=== PATIENT | female | born 1940 | race Caucasian/White ===

== ENCOUNTER 2016-10-02 19:48 | Inpatient (IN) | payer OTHER ==
[~2016-10-02] VITALS: Ht 157.5 cm; Wt 65.0 kg
[2016-10-02 20:05] VITALS: TEMP 97.8
[2016-10-02 20:07] LABS: URINE BLOOD (Dip) POC Trace-intact (NEGATIVE)
[2016-10-02] MEDS ORDERED: ASPIRIN 81 MG TAB PO STA (20:29)
[2016-10-02] MEDS ORDERED: NITROGLYCERIN 2% 1 GM OINT PKT TD STA (20:29)
[2016-10-02] MEDS ORDERED: NITROGLYCERIN (SL) 0.4 MG TAB SL PRN (20:30)
[2016-10-02] MEDS ORDERED: ASPI-664 PO (20:34)
[2016-10-02] MEDS ORDERED: METF1000 PO (20:34)
[2016-10-02] MEDS ORDERED: PANT40TA4 PO (20:35)
[2016-10-02] MEDS ORDERED: BENA10TA48 PO (20:35)
[2016-10-02] MEDS ORDERED: OMEG-135 PO (20:36)
[2016-10-02 20:52] LABS: ADD SCAN DIFF NO
[2016-10-02 20:54] LABS: BASOPHIL # 0.1 10^3/ul (0.0-0.1); BASOPHILS % 0.7 % (0.0-2.0); EOSINOPHILS # 0.8 10^3/ul (0.0-0.5); EOSINOPHILS % 8.6 % (0.0-7.0); HEMATOCRIT 41.9 % (37.0-47.0); HEMOGLOBIN 14.3 g/dl (12.0-16.0); LYMPHOCYTES # 4.2 10^3/ul (0.8-2.9); LYMPHOCYTES % 48.7 % (15.0-51.0); MEAN CORPUSCULAR HEMOGLOBIN 30.4 pg (29.0-33.0); MEAN CORPUSCULAR HGB CONC 34.1 g/dl (32.0-37.0); MEAN CORPUSCULAR VOLUME 89.1 fl (82.0-101.0); MEAN PLATELET VOLUME 11.3 fl (7.4-10.4); MONOCYTE # 0.4 10^3/ul (0.3-0.9); MONOCYTES % 4.9 % (0.0-11.0); NEUTROPHIL # 3.2 10^3/ul (1.6-7.5); NEUTROPHILS % 36.9 % (39.0-77.0); PLATELET COUNT 208 10^3/UL (140-415); WHITE BLOOD COUNT 8.7 10^3/ul (4.8-10.8)
[2016-10-02 21:07] LABS: INR 0.91; PROTIME 12.3 Sec (12.2-14.2)
[2016-10-02 21:08] LABS: PARTIAL THROMBOPLASTIN TIME 25.8 Sec (25.0-35.0)
[2016-10-02 21:09] LABS: CHLORIDE 97 mmol/L (97-110); POTASSIUM 4.1 mmol/L (3.5-5.1); SODIUM 138 mmol/L (135-144)
[2016-10-02 21:12] LABS: ANION GAP 21 (8-16); CARBON DIOXIDE 24 mmol/L (21-31); CREATININE 0.53 mg/dl (0.44-1.00)
[2016-10-02 21:13] LABS: BLOOD UREA NITROGEN 10 mg/dl (7-20); CALCIUM 9.5 mg/dl (8.4-10.2); GLUCOSE 252 mg/dl (70-220)
[2016-10-02 21:26] LABS: TROPONIN-I < 0.012 ng/ml (0.00-0.12)
--- NOTE | 2016-10-02 22:01 | RADRPT ---
PROCEDURE: CT Brain without contrast. CLINICAL INDICATION: Headaches TECHNIQUE: A CT of the brain was performed on a GE [employer]peed 64-slice CT scanner utilizing axial imaging from the skull base through the vertex without IV contrast. Multiplanar reformatted images were made. Images were reviewed on a PACS workstation. The CTDIvol is 44.63 mGy and the DLP is 720 .23 mGycm. One of the following 3 dose reduction techniques were used: Automated exposure control; adjustment of the mA and/or kV according to patient size; or use of iterative reconstruction technique. COMPARISON: None available FINDINGS: There is no intracranial hemorrhage, mass effect, or midline shift. No extra-axial fluid collection is seen. The ventricles and sulci are age appropriate. Mild diffuse volume loss is present. Subtl e decreased attenuation is present in the bilateral subcortical white matter, bilateral centrum semi ovale, bilateral periventricular white matter compatible with mild chronic microvascular ischemic di sease. mild vascular calcifications are present of the bilateral intracranial internal carotid erin farhan. Incidental note of an empty sella is present. The visualized scalp and calvarium are normal. The bilateral orbits are normal. The bilateral para nasal sinuses, mastoid air cells, and middle ear cavities are clear. Cerumen is present in the bila teral external ear canals. IMPRESSION: 1. No evidence of acute intracranial hemorrhage, infarcts, or acute intracranial pathology. 2. Mild chronic microvascular ischemic disease 3. Mild diffuse volume loss. 4. Mild atherosclerotic vascular disease RPTAT: HDC .Amrita Pérez MD, MD Date Time Electronically viewed and signed by .Amrita Pérez MD, MD on 10/02/2016 22:01 .C/
[2016-10-02] MEDS ORDERED: ACETAMINOPHEN 325 MG TAB PO PRN (22:30)
[2016-10-02] MEDS ORDERED: ONDANSETRON 4 MG INJ IV PRN (22:30)
--- NOTE | 2016-10-02 22:39 | RADRPT ---
PROCEDURE: XR Chest. CLINICAL INDICATION: Chest pain TECHNIQUE: Single frontal chest x-ray. COMPARISON: None. FINDINGS: The lungs are clear. No focal opacification is seen. The cardiomediastinal silhouette is unremarka ble. The osseous structures are remarkable for multilevel degenerative spondylosis of the spine. IMPRESSION: 1. There is no acute cardiopulmonary process. RPTAT: HMJB .Ede Pratt MD, MD Date Time Electronically viewed and signed by .Ede Pratt MD, on 10/02/2016 22:39 .B/
--- NOTE | 2016-10-02 22:44 | ERA ---
ER Documentation Chief Complaint Date/Time DATE: 10/02/16 TIME: 22:42 Chief Complaint weakness, headache x 4 days HPI Patient is a 76-year-old female with hypertension and diabetes who presents with chest pain. The patient was sent by clinic for "unstable angina pectoris" . The patient has chest pain and headache. The symptoms started 3 days ago. The pain comes and goes. Today the pain was worse. The patient has had no treatment as of yet. Does not know the name of her primary doctor. Upon review of old medical records this the patient's first visit to the emergency department. ROS All systems reviewed and are negative except as per history of present illness. Medications Home Meds Reported Medications [place]-3 Fatty Acids/Fish Oil (Fish Oil 1,000 mg Capsule) 1 Each Capsule, 2000 MG PO DAILY, CAP 10/02/16 Pantoprazole* (Pantoprazole*) 40 Mg Tablet.dr, 40 MG PO AC BREAKFAST, TAB 10/02/16 Benazepril Hcl* (Benazepril Hcl*) 10 Mg Tablet, 10 MG PO DAILY, #30 TAB 10/02/16 Aspirin* (Aspirin* EC) 81 Mg Tablet.dr, 81 MG PO DAILY, TAB 10/02/16 Metformin Hcl* (Metformin Hcl*) 1,000 Mg Tablet, 1000 MG PO WITH BREAKFAST DINNE , #60 TAB 10/02/16 Allergies Allergies: Coded Allergies: No Known Allergy (Unverified , 10/02/16) PMhx/Soc History of Surgery: No Anesthesia Reaction: No Hx Neurological Disorder: No Hx Respiratory Disorders: No Hx Cardiac Disorders: Yes (HTN) Hx Psychiatric Problems: No Hx Miscellaneous Medical Probl: Yes (DM) Hx Alcohol Use: No Hx Substance Use: No Hx Tobacco Use: No Smoking Status: Never smoker FmHx Family History: No coronary disease Physical Exam Vitals Vital Signs Date Time Temp Pulse Resp B/P Pulse Ox O2 Delivery O2 Flow Rate FiO2 10/02/16 22:00 77 18 149/70 100 Room Air 10/02/16 20:44 Nasal Cannula 2 10/02/16 20:05 97.8 80 22 188/86 100 Room Air Nasal Cannula 10/02/16 19:51 98.3 80 20 204/84 100 Physical Exam Const: No acute distress Head: Atraumatic Eyes: Normal Conjunctiva ENT: Normal External Ears, Nose and Mouth. Neck: Full range of motion..~ No meningismus. Resp: Clear to auscultation bilaterally Cardio: Regular rate and rhythm, no murmurs Abd: Soft, non tender, non distended. Normal bowel sounds Skin: No petechiae or rashes Back: No midline or flank tenderness Ext: No cyanosis, or edema Neur: Awake and alert Psych: Normal Mood and Affect Result Diagram: 10/02/16203210/02/162032 Results 24 hrs Laboratory Tests Test 10/02/16 20:07 10/02/16 20:33 Bedside Urine pH (LAB) 5.5 Bedside Urine Protein (LAB) Negative Bedside Urine Glucose (UA) 0.1% Bedside Urine Ketones (LAB) 1+ Bedside Urine Blood Trace-intact Bedside Urine Nitrite (LAB) Negative Bedside Urine Leukocyte Esterase (L Trace White Blood Count 8.710^3/ul Red Blood Count 4.7010^6/ul Hemoglobin 14.3g/dl Hematocrit 41.9% Mean Corpuscular Volume 89.1fl Mean Corpuscular Hemoglobin 30.4pg Mean Corpuscular Hemoglobin Concent 34.1g/dl Red Cell Distribution Width 13.0% Platelet Count 70860^3/UL Mean Platelet Volume 11.3fl Neutrophils % 36.9% Lymphocytes % 48.7% Monocytes % 4.9% Eosinophils % 8.6% Basophils % 0.7% Nucleated Red Blood Cells % 0.0/100WBC Neutrophils # 3.210^3/ul Lymphocytes # 4.210^3/ul Monocytes # 0.410^3/ul Eosinophils # 0.810^3/ul Basophils # 0.110^3/ul Nucleated Red Blood Cells # 0.010^3/ul Prothrombin Time 12.3Sec Prothrombin Time Ratio 1.0 INR International Normalized Ratio 0.91 Activated Partial Thromboplast Time 25.8Sec Sodium Level 138mmol/L Potassium Level 4.1mmol/L Chloride Level 97mmol/L Carbon Dioxide Level 24mmol/L Anion Gap 21 Blood Urea Nitrogen 10mg/dl Creatinine 0.53mg/dl Glucose Level 252mg/dl Calcium Level 9.5mg/dl Troponin I < 0.012ng/ml Current Medications Medications (Trade) Dose Ordered Sig/[place] Route PRN Reason Start Time Stop Time Status Last Admin Dose Admin Aspirin (Aspirin) 162 mg ONCE STAT PO 10/02/16 20:29 10/02/16 20:31 DC 10/02/16 20:38 Nitroglycerin (Nitroglycerin 2% Oint) 1 inch ONCE STAT TD 10/02/16 20:29 10/02/16 20:31 DC 10/02/16 20:38 Nitroglycerin (Nitroglycerin (Sl Tab) 0.4 Mg) 1 tab Q5M UP TO 3 DOSES PRN SL CHEST PAIN 10/02/16 20:30 Ondansetron HCl (Zofran Inj) 4 mg ER BRIDGE PRN IV NAUSEA AND/OR VOMITING 10/02/16 22:30 10/03/16 22:29 Acetaminophen (Tylenol Tab) 650 mg ER BRIDGE PRN PO MILD PAIN/FEVER 10/02/16 22:30 10/03/16 22:29 Procedures/MDM EKG #1 read by me: Rate/Rhythm: Regular rate and rhythm at a rate of 84 Intervals: Normal Impression: No evidence of ischemia or arrhythmia EKG #2 is pending at this time. CT brain negative per radiology. Chest x-ray negative per radiology. Patient is a 76-year-old female with hypertension and diabetes who presents with chest pain. There is concern for possible unstable angina. The patient will be admitted to Dr. Mckinney from the panel team. I doubt pneumonia, pneumothorax, pulmonary embolism, or aortic dissection. The patient was given aspirin and nitroglycerin. Departure Diagnosis: Primary Impression: Acute chest pain Additional Impression: Headache Qualified Code: R51 - Acute nonintractable headache, unspecified headache type Condition: RADHA Lin MD Oct 02, 2016 22:44
[2016-10-02 23:15] VITALS: Ht 157.5 cm; Wt 65.0 kg
[2016-10-02 23:44] VITALS: PULSE 77
[2016-10-03] VITALS (12 sets, daily range): BP systolic 123–163; BP diastolic 58–75; PULSE 71–87; RESP 16–19
[2016-10-03] MEDS ORDERED: hydrALAzine 20 MG INJ IV PRN
[2016-10-03] MEDS ORDERED: morphine 2 MG INJ IV PRN
[2016-10-03] MEDS ORDERED: DEXTROSE 50% 50 ML SYRINGE IV PRN ×2 (00:30)
[2016-10-03] MEDS ORDERED: GLUCOSE GEL 15 GRAM TUBE BUCCAL PRN (00:30)
[2016-10-03] MEDS ORDERED: GLUCAGON 1 MG INJ IM PRN (00:30)
[2016-10-03] MEDS ORDERED: GLUCOSE GEL 15 GRAM TUBE PO PRN ×2 (00:30)
[2016-10-03] MEDS: ACCU-CHEK XX SCH ×5 (02:10→21:00)
[2016-10-03] MEDS: ONDANSETRON 4 MG INJ IV PRN ×2 (02:24→09:58)
[2016-10-03] MEDS ORDERED: ACETAMINOPHEN 325 MG TAB PO PRN (02:30)
[2016-10-03] MEDS ORDERED: NITROGLYCERIN (SL) 0.4 MG TAB SL PRN (02:30)
--- NOTE | 2016-10-03 07:24 | HP ---
Date/Time of Note Date/Time of Note DATE: 10/03/16 TIME: :17 Assessment/Plan VTE Prophylaxis VTE Prophylaxis Intervention: heparin Lines/Catheters IV Catheter Type (from Nrsg): Saline Lock Urinary Cath still in place: No Assessment/Plan Assessment/Plan 1. Chest Pain - Oxygen, BB, statin and as needed Nitro and morphine - trend troponin - 2D-echo - Broadcast Designer consult 2. Hypertensive Urgency - adjust meds as needed for better BP control 3. DM - check A1c - Insulin with adjustment as needed HPI/ROS Admit Date/Time Admit Date/Time Oct 02, 2016 at 22:03 Hx of Present Illness Patient is a 76-year-old female with hypertension and diabetes who presents with chest pain after he was sent by clinic. Pain started 3 days ago, described as sharp. Also c/o generalized weakness and intermittent headache. In ER, BP was 209/124. EKG with no ST elevation or dep. first trop neg. He was given aspirin and nitro. . PMH/Family/Social Past Medical History Medical History: diabetes, hypertension Social History Alcohol Use: none Smoking Status: Never smoker Drug Use: none Exam/Review of Systems Vital Signs Vitals Vital Signs Date Time Temp Pulse Resp B/P Pulse Ox O2 Delivery O2 Flow Rate FiO2 10/03/16 04:34 98.4 84 16 123/58 95 10/02/16 22:00 Room Air 10/02/16 20:44 2 Exam Constitutional: other (No acute distress. Appears tired) Head: atraumatic, normocephalic Eyes: EOMI, PERRL Respiratory: clear to auscultation, normal air movement Cardiovascular: nl pulses, regular rate and rhythm Gastrointestinal: non-tender, soft Extremities: normal pulses Labs Result Diagram: 10/02/16203210/02/162032 Medications Medications Current Medications Aspirin (Halfprin) 81 mg DAILY PO ; Start 10/03/16 at 09:00 Fish Oil (Fish Oil) 2,000 mg DAILY PO ; Start 10/03/16 at 09:00 Morphine Sulfate (morphine) 2 mg Q4H PRN IV PAIN; Start 10/03/16 at 00:00 Hydralazine HCl (Apresoline) 10 mg Q4H PRN IV ELEVATED SYSTOLIC BP Last administered on 10/03/16t 00:45; Admin Dose 10 MG; Start 10/03/16 at 00:00 Insulin Glargine (Lantus) 10 unit HS SC ; Start 10/03/16 at 21:00 Diagnostic Test (Pha) (Accu-Chek) 1 ea 02 XX Last administered on 10/03/16 02: 10; Admin Dose 1 EA; Start 10/03/16 at 02:00 Miscellaneous Information 1 ea NOTE XX ; Start 10/03/16 at 00:30 Glucose (Glutose) 15 gm Q15M PRN PO DECREASED GLUCOSE; Start 10/03/16 at 00:30 Glucose (Glutose) 22.5 gm Q15M PRN PO DECREASED GLUCOSE; Start 10/03/16 at 00: 30 Dextrose (D50w Syringe) 25 ml Q15M PRN IV DECREASED GLUCOSE; Start 10/03/16 at 00:30 Dextrose (D50w Syringe) 50 ml Q15M PRN IV DECREASED GLUCOSE; Start 10/03/16 at 00:30 Glucagon (Glucagen) 1 mg Q15M PRN IM DECREASED GLUCOSE; Start 10/03/16 at 00:30 Glucose (Glutose) 15 gm Q15M PRN BUCCAL DECREASED GLUCOSE; Start 10/03/16 at 00 :30 Ondansetron HCl (Zofran Inj) 4 mg Q4H PRN IV NAUSEA AND/OR VOMITING Last administered on 10/03/16 02:24; Admin Dose 4 MG; Start 10/03/16 at 01:00 Acetaminophen (Tylenol Tab) 650 mg Q4H PRN PO PAIN AND OR ELEVATED TEMP Last administered on 10/03/16 02:24; Admin Dose 650 MG; Start 10/03/16 at 02:30 Nitroglycerin (Nitroglycerin (Sl Tab) 0.4 Mg) 1 tab Q5M PRN SL ANGINA; Start at 02:30 SON KUO MD Oct 03, 2016 07:24
[2016-10-03] MEDS: INSULIN ASPART [NOVOLOG] 3 ML PEN SC SCH ×6 (08:00→21:00)
[2016-10-03 08:05] LABS: ADD SCAN DIFF NO
[2016-10-03] MEDS: PANTOPRAZOLE (EC) 40 MG TAB PO SCH (08:10)
[2016-10-03 08:12] LABS: BASOPHIL # 0.1 10^3/ul (0.0-0.1); BASOPHILS % 0.7 % (0.0-2.0); EOSINOPHILS # 0.4 10^3/ul (0.0-0.5); EOSINOPHILS % 3.8 % (0.0-7.0); LYMPHOCYTES # 3.2 10^3/ul (0.8-2.9); LYMPHOCYTES % 34.4 % (15.0-51.0); MEAN CORPUSCULAR HEMOGLOBIN 30.6 pg (29.0-33.0); MEAN CORPUSCULAR HGB CONC 34.2 g/dl (32.0-37.0); MEAN CORPUSCULAR VOLUME 89.4 fl (82.0-101.0); MEAN PLATELET VOLUME 11.7 fl (7.4-10.4); MONOCYTE # 0.4 10^3/ul (0.3-0.9); MONOCYTES % 4.1 % (0.0-11.0); NEUTROPHIL # 5.2 10^3/ul (1.6-7.5); NEUTROPHILS % 56.9 % (39.0-77.0); PLATELET COUNT 186 10^3/UL (140-415); RED BLOOD COUNT 4.25 10^6/ul (4.20-5.40); RED CELL DISTRIBUTION WIDTH 13.2 % (11.5-14.5); WHITE BLOOD COUNT 9.2 10^3/ul (4.8-10.8)
[2016-10-03] MEDS: metFORMIN 500 MG TAB PO SCH ×2 (08:14→17:22)
[2016-10-03 08:19] LABS: ALBUMIN 3.8 g/dl (3.3-4.9)
[2016-10-03 08:22] LABS: ALBUMIN/GLOBULIN RATIO 1.11; BILIRUBIN,INDIRECT 0.2 mg/dl (0-1.1); BILIRUBIN,TOTAL 0.2 mg/dl (0.2-1.3); CREATINE KINASE 30 IU/L (23-200); CREATININE 0.46 mg/dl (0.44-1.00); TOTAL PROTEIN 7.2 g/dl (6.1-8.1)
[2016-10-03 08:23] LABS: CALCIUM 8.8 mg/dl (8.4-10.2); CHOL/HDL RATIO 4.8 RATIO
[2016-10-03 08:34] LABS: CK-MB 0.28 ng/ml (0.0-2.4)
[2016-10-03 08:40] LABS: TROPONIN-I < 0.012 ng/ml (0.00-0.12)
[2016-10-03 09:23] LABS: THYROID STIMULATING HORMONE 2.35 MIU/L (0.465-4.680)
[2016-10-03] MEDS: FISH OIL 1,000 MG CAP PO SCH (09:57)
[2016-10-03] MEDS: ASPIRIN (EC) 81 MG TAB PO SCH (09:58)
--- NOTE | 2016-10-03 13:28 | RADRPT ---
Echocardiogram Report Patient Name: DENISE HEBERT Gender: Female Date: 1940 Study Date: 03-Oct-2016 Shift Commander: Rosamaria Bianchi [facility] Location: 5549 Ref. Physician: SON KUO Quality: Good Procedures: Transthoracic echocardiogram with complete 2D, M-Mode, and doppler examination. Indications: Chest Pain. 2D/M Mode Doppler Measurement Value Normal Ranges Measurement Value Normal Ranges LVIDd 2D 4.0 3.5 - 5.6 cm AV Peak Alec 1.4 m/sec LVIDs 2D 2.1 2.1 - 4.1 cm AV Peak PG 7.5 mmHg LVPWd 2D 1.0 0.6 - 1.1 cm AI Peak PG 29.7 mmHg IVSd 2D 0.8 0.6 - 1.1 cm AI Peak Alec 2.7 m/sec AoR Diam 2D 2.7 2.0 - 3.7 cm AI PHT 644.2 msec EDV 2D 70.4 cm3 LVOT Peak Alec 0.9 m/sec ESV 2D 9.2 cm3 LVOT Peak PG 3.5 mmHg LA Dimen 2D 3.4 2.3 - 4.0 cm MV E Peak Alec 0.9 m/sec MV A Peak Alec 1.5 m/sec MV E/A 0.6 MV Decel Time 242 msec MV Decel [place] 4 MV E/A 0.6 TR Peak Alec 1.8 m/sec TR Peak PG 12.6 mmHg RVSP 16.0 mmHg Findings Left Ventricle: Normal left ventricular systolic function. Normal left ventricular cavity size. Normal left ventricular wall thickness. Ejection fraction is visually estimated at 65 %. Tissue Doppler/Mitral Doppler indices are consistent with impaired relaxation (Stage I diastolic dysfunction). Right Ventricle: Normal right ventricular size. Normal right ventricular systolic function. Left Atrium: There is mild enlargement of left atrium. Right Atrium: The right atrium is normal in size. Mitral Valve: Mitral valve leaflets appear mildly thickened. Mild mitral annular calcification. Trace mitral regurgitation. Aortic Valve: No hemodynamically significant aortic stenosis by doppler. Aortic cusps appear mildly calcified. Trace to mild aortic valve regurgitation. Tricuspid Valve: Normal appearance of the tricuspid valve. Estimated peak PA systolic pressure 16 mmHg. There is trace tricuspid regurgitation. Pulmonic Valve: Pulmonic valve not well visualized. Pericardium: Normal pericardium with no significant pericardial effusion. Aorta: Normal aortic root. IVC: Normal size and normal respiratory collapse consistent with normal right atrial pressure. Conclusions 1.Normal left ventricular systolic function. Normal left ventricular cavity size. Normal left ventricular wall thickness. Ejection fraction is visually estimated at 65 %. Tissue Doppler/Mitral Doppler indices are consistent with impaired relaxation (Stage I diastolic dysfunction). 2.Trace to mild aortic valve regurgitation. 3.Estimated peak PA systolic pressure 16 mmHg based on RA pressure of 3 mmHg. Electronically Signed By: Martin Bright 03-Oct-2016 13:28:15 -0700 Patient Name: DENISE HEBERT Study Date: 03-Oct-2016 [id number]
--- NOTE | 2016-10-03 14:47 | PN ---
Date/Time of Note Date/Time of Note DATE: 10/03/16 TIME: 14:45 Assessment/Plan VTE Prophylaxis VTE Prophylaxis Intervention: SCD's Lines/Catheters IV Catheter Type (from Nrs): Saline Lock Urinary Cath still in place: No Assessment/Plan Chief Complaint/Hosp Course Assessment and plan 1. Chest pain. Serial troponins negative. EF of 65% with stage I diastolic dysfunction. Continue on beta lou. 2. Hypertensive urgency. Continue on antihypertensives and adjust needed 3. Diabetes. A1c of 10.5. Still noted with hyperglycemia. nurses educator to follow. We'll adjust insulin regimen Disposition and plan: community health educator follow. Still hyperglycemic. Will adjust insulin regimen. nurses educator to follow. Discharge when medically stable Discussed plan of care with Dr. Phillips Problems: Subjective 24 Hr Interval Summary Free Text/Dictation no reports of chest pain at this time. reported her chest pain was on deep inspiration Exam/Review of Systems Vital Signs Vitals Vital Signs Date Time Temp Pulse Resp B/P Pulse Ox O2 Delivery O2 Flow Rate FiO2 10/03/16 12:07 75 10/03/16 11:51 99.0 18 150/67 96 10/02/16 22:00 Room Air 10/02/16 20:44 2 Exam Constitutional: alert Psych: no complaints Head: normocephalic Eyes: nl conjunctiva Neck: non-tender, supple, No jvd Respiratory: clear to auscultation, normal air movement Cardiovascular: regular rate and rhythm Gastrointestinal: non-tender, soft Extremities: normal pulses Neurological: nl mental status, nl speech Skin: nl turgor, rash or lesions Results Result Diagram: 10/03/16 0715 10/03/16 0715 Results 24 hrs Laboratory Tests Test 10/02/16 20:07 10/02/16 20:33 10/03/16 00:49 10/03/16 02:04 Bedside Urine pH (LAB) 5.5 Bedside Urine Protein (LAB) Negative Bedside Urine Glucose (UA) 0.1% H Bedside Urine Ketones (LAB) 1+ H Bedside Urine Blood Trace-intact H Bedside Urine Nitrite (LAB) Negative Bedside Urine Leukocyte Esterase (L Trace H White Blood Count 8.7 Red Blood Count 4.70 Hemoglobin 14.3 Hematocrit 41.9 Mean Corpuscular Volume 89.1 Mean Corpuscular Hemoglobin 30.4 Mean Corpuscular Hemoglobin Concent 34.1 Red Cell Distribution Width 13.0 Platelet Count 208 Mean Platelet Volume 11.3 H Neutrophils % 36.9 L Lymphocytes % 48.7 Monocytes % 4.9 Eosinophils % 8.6 H Basophils % 0.7 Nucleated Red Blood Cells % 0.0 Neutrophils # 3.2 Lymphocytes # 4.2 H Monocytes # 0.4 Eosinophils # 0.8 H Basophils # 0.1 Nucleated Red Blood Cells # 0.0 Prothrombin Time 12.3 Prothrombin Time Ratio 1.0 INR International Normalized Ratio 0.91 Activated Partial Thromboplast Time 25.8 Sodium Level 138 Potassium Level 4.1 Chloride Level 97 Carbon Dioxide Level 24 Anion Gap 21 H Blood Urea Nitrogen 10 Creatinine 0.53 Glucose Level 252 H Calcium Level 9.5 Troponin I < 0.012 < 0.012 Bedside Glucose 198 Test 10/03/16 07:15 10/03/16 08:07 10/03/16 11:18 White Blood Count 9.2 Red Blood Count 4.25 Hemoglobin 13.0 Hematocrit 38.0 Mean Corpuscular Volume 89.4 Mean Corpuscular Hemoglobin 30.6 Mean Corpuscular Hemoglobin Concent 34.2 Red Cell Distribution Width 13.2 Platelet Count 186 Mean Platelet Volume 11.7 H Neutrophils % 56.9 Lymphocytes % 34.4 Monocytes % 4.1 Eosinophils % 3.8 Basophils % 0.7 Nucleated Red Blood Cells % 0.0 Neutrophils # 5.2 Lymphocytes # 3.2 H Monocytes # 0.4 Eosinophils # 0.4 Basophils # 0.1 Nucleated Red Blood Cells # 0.0 Sodium Level 136 Potassium Level 4.0 Chloride Level 100 Carbon Dioxide Level 22 Anion Gap 18 H Blood Urea Nitrogen 10 Creatinine 0.46 Glucose Level 224 H Hemoglobin A1c 10.5 H Calcium Level 8.8 Total Bilirubin 0.2 Direct Bilirubin 0.00 Indirect Bilirubin 0.2 Aspartate Amino Transf (AST/SGOT) 46 Alanine Aminotransferase (ALT/SGPT) 70 H Alkaline Phosphatase 79 Creatine Kinase 30 Creatine Kinase Index 0.9 Creatinine Kinase MB (Mass) 0.28 Troponin I < 0.012 Total Protein 7.2 Albumin 3.8 Globulin 3.40 H Albumin/Globulin Ratio 1.11 Triglycerides Level 407 H Cholesterol Level 169 LDL Cholesterol, Calculated 53 HDL Cholesterol 35 Cholesterol/HDL Ratio 4.8 Thyroid Stimulating Hormone (TSH) 2.350 Bedside Glucose 195 188 Medications Medications Current Medications Aspirin (Halfprin) 81 mg DAILY PO Last administered on 10/03/16 09:58; Admin Dose 81 MG; Start 10/03/16 at 09:00 Fish Oil (Fish Oil) 2,000 mg DAILY PO Last administered on 10/03/16 09:57; Admin Dose 2,000 MG; Start 10/03/16 at 09:00 Morphine Sulfate (morphine) 2 mg Q4H PRN IV PAIN; Start 10/03/16 at 00:00 Hydralazine HCl (Apresoline) 10 mg Q4H PRN IV ELEVATED SYSTOLIC BP Last administered on 10/03/16 00:45; Admin Dose 10 MG; Start 10/03/16 at 00:00 Diagnostic Test (Pha) (Accu-Chek) 1 ea 02 XX Last administered on 10/03/16 02: 10; Admin Dose 1 EA; Start 10/03/16 at 02:00 Miscellaneous Information 1 ea NOTE XX ; Start 10/03/16 at 00:30 Glucose (Glutose) 15 gm Q15M PRN PO DECREASED GLUCOSE; Start 10/03/16 at 00:30 Glucose (Glutose) 22.5 gm Q15M PRN PO DECREASED GLUCOSE; Start 10/03/16 at 00: 30 Dextrose (D50w Syringe) 25 ml Q15M PRN IV DECREASED GLUCOSE; Start 10/03/16 at 00:30 Dextrose (D50w Syringe) 50 ml Q15M PRN IV DECREASED GLUCOSE; Start 10/03/16 at 00:30 Glucagon (Glucagen) 1 mg Q15M PRN IM DECREASED GLUCOSE; Start 10/03/16 at 00:30 Glucose (Glutose) 15 gm Q15M PRN BUCCAL DECREASED GLUCOSE; Start 10/03/16 at 00 :30 Ondansetron HCl (Zofran Inj) 4 mg Q4H PRN IV NAUSEA AND/OR VOMITING Last administered on 10/03/16 09:58; Admin Dose 4 MG; Start 10/03/16 at 01:00 Acetaminophen (Tylenol Tab) 650 mg Q4H PRN PO PAIN AND OR ELEVATED TEMP Last administered on 10/03/16 02:24; Admin Dose 650 MG; Start 10/03/16 at 02:30 Nitroglycerin (Nitroglycerin (Sl Tab) 0.4 Mg) 1 tab Q5M PRN SL ANGINA; Start at 02:30 Insulin Glargine (Lantus) 14 unit HS SC ; Start 10/03/16 at 21:00 LILY BATRES Oct 03, 2016 14:47
[2016-10-03] MEDS ORDERED: INSULIN GLARGINE [LANtus] 3 ML PEN SC SCH ×2 (21:00)
[2016-10-04] VITALS (8 sets, daily range): BP systolic 130–161; BP diastolic 61–72; PULSE 69–79; RESP 18–19
[2016-10-04] MEDS: ACCU-CHEK XX SCH ×3 (02:53→12:04)
[2016-10-04] MEDS: INSULIN ASPART [NOVOLOG] 3 ML PEN SC SCH ×4 (08:00→12:18)
[2016-10-04] MEDS: FISH OIL 1,000 MG CAP PO SCH (08:32)
[2016-10-04] MEDS: ASPIRIN (EC) 81 MG TAB PO SCH (08:32)
[2016-10-04] MEDS: PANTOPRAZOLE (EC) 40 MG TAB PO SCH (08:32)
[2016-10-04] MEDS: metFORMIN 500 MG TAB PO SCH (08:32)
[2016-10-04] MEDS ORDERED: LANT3I SC (10:17)
[2016-10-04] MEDS ORDERED: METF500T PO (10:17)
[2016-10-04] MEDS ORDERED: NOVO3I SC (10:17)
--- NOTE | 2016-10-04 10:20 | PDOCDIS ---
Discharge Instructions DIAGNOSIS Discharge Diagnosis: 1. atypical chest pain 2. diabetes 3. hypertension CONDITION Patient Condition: Stable HOME CARE INSTRUCTIONS: Special Diet: 1800 Don ADA FOLLOW UP/APPOINTMENTS Appointments 1. Follow up with your primary care provider in one week LILY BATRES Oct 04, 2016 10:20
[2016-10-04] MEDS ORDERED: LINA5TAB PO (15:16)
--- NOTE | 2016-10-06 17:57 | DS ---
Date/Time of Note Date/Time of Note DATE: 10/06/16 TIME: 17:54 Discharge Summary Admission/Discharge Info Admit Date/Time Oct 02, 2016 at 22:03 Discharge Date/Time Oct 04, 2016 at 15:30 Final Diagnosis 1. Chest pain. Serial troponins negative. EF of 65% with stage I diastolic dysfunction. 2. Hypertensive urgency. 3. Diabetes. A1c of 10.5. Patient Condition: Stable Hospital Course This is a 76-year-old female with history of diabetes and hypertension who came to [facility] due to reports of chest pain. Patient did report that her chest pain started 3 days prior to admission with sharp-like in nature. She denied any radiation of pain or chest pain on exertion. Patient did have serial troponins drawn which were all essentially negative. She also had echocardiogram that did show a have an EF of 65% with stage I diastolic dysfunction. Chest pain likely atypical. She was resumed on her cardiovascular medications. For hypertension she was continued on antihypertensives and we did stabilize this as well. She did have diabetes and had an A1c of 10.5. She was seen by commissary officer. She was also placed on insulin for which she did have a response to. During the course of stay she did improve. She was instructed to follow-up with a primary care provider. She was ruled out for ACS. The plan of care was discussed with the patient and patient did verbalize understanding. On the day of discharge patient was in stable condition Discussed plan of care with Dr. Phillips Discharge process 40 minutes Home Meds Active Scripts Linagliptin (TRADJENTA) 5 Mg Tablet, 5 MG PO DAILY for 30 Days, TAB Prov:LILY BATRES 10/04/16 Metformin Hcl (Glucophage) 500 Mg Tablet, 1000 MG PO WITH BREAKFAST DINNE for 30 Days, TAB Prov:LILY BATRES 10/04/16 Reported Medications [place]-3 Fatty Acids/Fish Oil (Fish Oil 1,000 mg Capsule) 1 Each Capsule, 2000 MG PO DAILY, CAP 10/02/16 Pantoprazole* (Pantoprazole*) 40 Mg Tablet.dr, 40 MG PO AC BREAKFAST, TAB 10/02/16 Benazepril Hcl* (Benazepril Hcl*) 10 Mg Tablet, 10 MG PO DAILY, #30 TAB 10/02/16 Aspirin* (Aspirin* EC) 81 Mg Tablet., 81 MG PO DAILY, TAB 10/02/16 Discontinued Reported Medications Metformin Hcl* (Metformin Hcl*) 1,000 Mg Tablet, 1000 MG PO WITH BREAKFAST DINNE , #60 TAB 10/02/16 Follow-up Plan CONDITION Patient Condition: Stable HOME CARE INSTRUCTIONS: Special Diet: 1800 Don ADA FOLLOW UP/APPOINTMENTS Appointments 1. Follow up with your primary care provider in one week LILY BATRES Oct 06, 2016 17:57
== END 2016-10-04 15:30 | disposition home or self-care (01) | DRG 313 ==
LOC: E/R 19:48 → MS4 22:03
PROVIDERS: ADMIT Internal Medicine; ATTEND Internal Medicine
DX: R07.9 Chest pain, unspecified (principal); E11.9 Type 2 diabetes mellitus without complications; I16.0 Hypertensive urgency; R51 Headache; Z79.4 Long term (current) use of insulin
CPT/HCPCS: 36415; 70450; 71010; 80048; 80053; 80061; 81003; 82550; 82553; 82962; 83036; 84443; 84484; 85025; 85610; 85730; 93005; 93306; J0360; J1815; J2405

== ENCOUNTER 2016-10-15 14:38 | Outpatient (CLI) | payer OTHER ==
[~2016-10-15] VITALS: Ht 157.5 cm; Wt 62.7 kg
[~2016-10-15 14:38] MED LIST: ASPI-664 PO; LANT3I SC; LINA5TAB PO; METF1000 PO; METF500T PO; NOVO3I SC; OMEG-135 PO; PANT40TA4 PO
[2016-10-15 14:47] VITALS: BP 184/77; PULSE 73; RESP 18; Ht 157.5 cm; Wt 62.7 kg
--- NOTE | 2016-10-15 15:53 | PN ---
Date/Time of Note Date/Time of Note DATE: 10/15/16 TIME: 15:49 Outpatient Progress Note Chief Complaint ASHD/Hypertension/diabetes/ HPI ASHD/no chest pain, no PND orthopnea or ankle edema, patient was recently hospitalized with chest pain, no pressure or pain at present, Hypertension/no headache or dizziness or lightheadedness, no local focal weakness, no impaired vision, no blood in the urine, thank you diabetes/no polydipsia polyuria hypoglycemia, gastroparesis, Review of Systems Const: [No Fever, no chills, no Wt. loss, no Fatigue, normal appetite, no diaphoresis.] Eyes: [No pain, no discharge, no redness, no visual change, no foreign body.] ENT: [No pain, no bleeding, no congestion, no sore throat, no dysphagia, no discharge or rhinitis.] Lymph: [No adenopathy, no tender nodes, no lymphedema.] Resp: [No SOB, no cough, no sputum, no wheezing, no chest pain.] CV: [No chest pain, no palpitaions, no LYONS, no PND, no edema.] GI: [Normal appetite, no pain, no nausea, no vomiting, no diarrhea, no blood, no constipation.] : [No frequency, no urgency, no dysuria, no hematuria, no flank pain, no discharge, no bleeding.] Musc: [No bone/joint pain, no back pain, no neck pain, no knee pain, no restricted ROM.] Skin: [No rash, no skin lesions, no erythema, no laceration, no bruising, no pruritus.] Neuro: [Minimal OCONNELL, no dizziness, no syncope, no seizure, no focal-weakness.] Endo: [No polyuria, no polydypsia, no dry-skin, no temp-intolerance.] Psych: [No hallucinations, no depression, no anxiety, no suicidal ideation.] Ext: [No edema, no pain, no ulcer, no weakness.] Physical Exam Vital Signs Date Time Temp Pulse Resp B/P Pulse Ox O2 Delivery O2 Flow Rate FiO2 10/15/16 14:47 98.5 73 18 184/77 97 Room Air General Appearance: A 76 [year-old [female] [who appears well-developed, well- nourished, in no acute distress.] HEENT: [Head normocephalic, atraumatic. Pupils equal, round, reactive to light and accommodate. Sclerae are no jaundice. Nasal turbinates pink without erythema or nasal discharge. Mucous membranes pink and moist without lesions. Oropharynx clear without any exudate or discharge.] NECK: [Supple. Trachea midline, No thyromegaly, No cervical lymphadenopathy, No mass, No carotid bruits, No JVD, Carotid pulses 2+ bilaterally.] PULMONARY: [Clear to auscultaion bilaterally, No retractions, Chest expansion symmetric bilaterally, no rales, no ronchi, no dulness on percussion.] CARDIAC: [Normal SI and S2, Regular rate and rythm, no murmur, gallop, or rub.] GASTROINTESTINAL: [Abdomen is soft, non-tender, Non Rigid, No distention, Positive bowel sounds x4 quadrants, Liver normal.] SKIN: [Warm, dry, no rash, no bruise, no echmosis.] EXTREMITIES: [Bilateral lower extremities normal, no edema, no phlabitus, pulse palpable, no contracture.] MUSCULOSKELETAL: [Spine Normal, Non-tender, Normal range of motion, No swelling , no deformity, no clubbing, or cyanosis, the patient has no edema to bilateral lower extremities, dorsalis pedis pulses palpable bilaterally.] NEUROLOGIC: [The patient is awake, alert, oriented, responding to yes/no questions appropriately, moving all extremities, cranial nerve intact, normal strenght, normal power, normal coordination, normal gait.] Allergies Coded Allergies: No Known Allergy (Unverified , 10/02/16) PMH No change Social Hx No change Assessment/Plan Impression ASHD/hypertension/diabetes Plan Patient education done about ASHD hypertension and diabetes, patient to control weight, blood sugar, and blood pressure, patient blood pressure significantly elevated, Patient's benazepril will be increased from 10 mg daily to 20 mg daily, #30 next patient patient also given, patient supposed to continue all other medication, Patient to follow with the primary care physician, if the blood pressure remains elevated may increase benazepril to 40 mg daily, control the blood pressure below 120 Medications Home Meds Active Scripts Linagliptin (TRADJENTA) 5 Mg Tablet, 5 MG PO DAILY for 30 Days, TAB Prov:LILY BATRES 10/04/16 Metformin Hcl (Glucophage) 500 Mg Tablet, 1000 MG PO WITH BREAKFAST DINNE for 30 Days, TAB Prov:ROBIN BATRESNELL 10/04/16 Reported Medications [id number] Fatty Acids/Fish Oil (Fish Oil 1,000 mg Capsule) 1 Each Capsule, 2000 MG PO DAILY, CAP 10/02/16 Pantoprazole* (Pantoprazole*) 40 Mg Tablet.dr, 40 MG PO AC BREAKFAST, TAB 10/02/16 Benazepril Hcl* (Benazepril Hcl*) 10 Mg Tablet, 10 MG PO DAILY, #30 TAB 10/02/16 Aspirin* (Aspirin* EC) 81 Mg Tablet.dr, 81 MG PO DAILY, TAB 10/02/16 MARTIN JAMA MD Oct 15, 2016 15:53
[2016-10-15] MEDS ORDERED: BENA10TA48 PO (20:35)
== END 2016-10-15 16:26 | disposition home or self-care (01) ==
LOC: DCC 14:38
PROVIDERS: ATTEND Internal Medicine
DX: I25.10 Atherosclerotic heart disease of native coronary artery without angina pectoris (principal); I10 Essential (primary) hypertension; E11.9 Type 2 diabetes mellitus without complications; Z79.84 Long term (current) use of oral hypoglycemic drugs; Z79.82 Long term (current) use of aspirin
CPT/HCPCS: G0463

== ENCOUNTER 2016-10-29 14:40 | Outpatient (CLI) | payer OTHER ==
[~2016-10-29] VITALS: Ht 154.9 cm; Wt 64.1 kg
[~2016-10-29 14:40] MED LIST changes: +BENA10TA48 PO; -LANT3I SC; -METF1000 PO; -NOVO3I SC
[2016-10-29 14:43] VITALS: BP 142/64; PULSE 80; RESP 18; Ht 154.9 cm; Wt 64.1 kg
--- NOTE | 2016-10-29 15:47 | PN ---
Date/Time of Note Date/Time of Note DATE: 10/29/16 TIME: 15:13 Outpatient Progress Note Chief Complaint Diabetes/hypertension/ASHD HPI Diabetes/no pleuritic supple due to hypoglycemia, gastroparesis, blood sugar controlled, Hypertension/no headache or dizziness, no nausea or vomiting, ASHD/no chest pain no PND orthopnea or ankle edema, Review of Systems Const: No Fever, no chills, no Wt. loss, no Fatigue, normal appetite, no diaphoresis. Eyes: No pain, no discharge, no redness, no visual change, no foreign body. ENT: No pain, no bleeding, no congestion, no sore throat, no dysphagia, no discharge or rhinitis. Lymph: No adenopathy, no tender nodes, no lymphedema. Resp: No SOB, no cough, no sputum, no wheezing, no chest pain. CV: No chest pain, no palpitaions, no LYONS, no PND, no edema. GI: Normal appetite, no pain, no nausea, no vomiting, no diarrhea, no blood, no constipation. : No frequency, no urgency, no dysuria, no hematuria, no flank pain, no discharge, no bleeding. Musc: No bone/joint pain, no back pain, no neck pain, no knee pain, no restricted ROM. Skin: No rash, no skin lesions, no erythema, no laceration, no bruising, no pruritus. Neuro: No OCONNELL, no dizziness, no syncope, no seizure, no focal-weakness. Endo: No polyuria, no polydypsia, no dry-skin, no temp-intolerance. Psych: No hallucinations, no depression, no anxiety, no suicidal ideation. Ext: No edema, no pain, no ulcer, no weakness. Physical Exam Vital Signs Date Time Temp Pulse Resp B/P Pulse Ox O2 Delivery O2 Flow Rate FiO2 10/29/16 14:43 98.6 80 18 142/64 97 Room Air General Appearance: A 76 ear-old female who appears well-developed, well- nourished, in no acute distress. HEENT: Head normocephalic, atraumatic. Pupils equal, round, reactive to light and accommodate. Sclerae are no jaundice. Nasal turbinates pink without erythema or nasal discharge. Mucous membranes pink and moist without lesions. Oropharynx clear without any exudate or discharge. NECK: Supple. Trachea midline, No thyromegaly, No cervical lymphadenopathy, No mass, No carotid bruits, No JVD, Carotid pulses 2+ bilaterally. PULMONARY: Clear to auscultaion bilaterally, No retractions, Chest expansion symmetric bilaterally, no rales, no ronchi, no dulness on percussion. CARDIAC: Normal SI and S2, Regular rate and rythm, no murmur, gallop, or rub. GASTROINTESTINAL: Abdomen is soft, non-tender, Non Rigid, No distention, Positive bowel sounds x4 quadrants, Liver normal. SKIN: Warm, dry, no rash, no bruise, no echmosis. EXTREMITIES: Bilateral lower extremities normal, no edema, no phlabitus, pulse palpable, no contracture. MUSCULOSKELETAL: Spine Normal, Non-tender, Normal range of motion, No swelling, no deformity, no clubbing, or cyanosis, the patient has no edema to bilateral lower extremities, dorsalis pedis pulses palpable bilaterally. NEUROLOGIC: The patient is awake, alert, oriented, responding to yes/no questions appropriately, moving all extremities, cranial nerve intact, normal strenght, normal power, normal coordination, normal gait. Allergies Coded Allergies: No Known Allergy (Unverified , 10/02/16) PMH Diabetes/hypertension/ASHD Social Hx No change Family Hx No change Assessment/Plan Impression Diabetes/hypertension/ASHD Plan Patient advised to control the blood sugar and blood pressure, Increase activity, control the diet, Patient encouraged to follow with the primary care physician, Patient is going to run out of benazepril, and Tradjenta, one-month supply ordered, Patient to take all the readings to the primary care physician, at present patient does not have any complaints, patient feel comfortable, Medications Home Meds Active Scripts Linagliptin (TRADJENTA) 5 Mg Tablet, 5 MG PO DAILY for 30 Days, TAB Prov:LILY BATRES 10/04/16 Metformin Hcl (Glucophage) 500 Mg Tablet, 1000 MG PO WITH BREAKFAST DINNE for 30 Days, TAB Prov:LILY BATRES 10/04/16 Reported Medications St[facility]-3 Fatty Acids/Fish Oil (Fish Oil 1,000 mg Capsule) 1 Each Capsule, 2000 MG PO DAILY, CAP 10/02/16 Pantoprazole* (Pantoprazole*) 40 Mg Tablet.dr, 40 MG PO AC BREAKFAST, TAB 10/02/16 Benazepril Hcl* (Benazepril Hcl*) 10 Mg Tablet, 20 MG PO DAILY for ELEVATED BLOOD PRESSURE for 30 Days, #30 TAB 10/02/16 Aspirin* (Aspirin* EC) 81 Mg Tablet., 81 MG PO DAILY, TAB 10/02/16 MARTIN JAMA MD October 29, 2016 15:47
== END 2016-10-29 16:31 | disposition home or self-care (01) ==
LOC: DCC 14:40
PROVIDERS: ATTEND Internal Medicine
DX: E11.9 Type 2 diabetes mellitus without complications (principal); I10 Essential (primary) hypertension; I25.10 Atherosclerotic heart disease of native coronary artery without angina pectoris

== ENCOUNTER 2017-08-19 13:05 | Inpatient (IN) | END 2017-08-21 18:43 | disposition home health service (06) | DRG 872 ==